=== PATIENT | female | born 1980 | race Caucasian/White ===

== ENCOUNTER 2019-01-26 13:35 | Emergency (ER) | payer MEDICAID, OTHER ==
[~2019-01-26] VITALS: Ht 175.3 cm; Wt 90.7 kg
[2019-01-26 13:53] VITALS: BP 121/70
[2019-01-26 17:56] LABS: Hepatitis B Surface Antibody Positive
[2019-01-26 18:38] LABS: Hepatitis B Surface Antigen Negative (Negative)
== END 2019-01-26 14:44 | disposition home or self-care (01) ==
LOC: ER 13:49
DX: S61.032A Puncture wound without foreign body of left thumb without damage to nail, initial encounter (principal); W46.0XXA Contact with hypodermic needle, initial encounter; Y93.89 Activity, other specified; Y92.89 Other specified places as the place of occurrence of the external cause; Y99.8 Other external cause status
CPT/HCPCS: 36415; 86703; 86706; 86803; 87340

== ENCOUNTER → 2019-04-09 | Outpatient (CLI) | payer OTHER ==
[2019-04-09 13:58] LABS: Hepatitis B Surface Antibody Positive
[2019-04-09 15:21] LABS: Hepatitis B Surface Antigen Negative (Negative)
== END | disposition home or self-care (01) ==
LOC: LAB 11:39
PROVIDERS: ATTEND Nurse Practitioner
DX: Z77.21 Contact with and (suspected) exposure to potentially hazardous body fluids (principal)
CPT/HCPCS: 36415; 86703; 86706; 86803; 87340